=== PATIENT | female | born 1985 | race Caucasian/White ===

== ENCOUNTER 2017-09-15 19:18 | Emergency (ER) | payer OTHER ==
[~2017-09-15] VITALS: Ht 177.8 cm; Wt 131.5 kg
[2017-09-15] MEDS ORDERED: FLEXERIL (19:22)
[2017-09-15 21:22] LABS: ABSOLUTE EOSINOPHILS 0.1 thou/uL (0.0-0.7); ABSOLUTE LYMPHOCYTES 1.9 thou/uL (0.8-5.3); ABSOLUTE MONOCYTES 0.6 thou/uL (0.0-1.2); ABSOLUTE NEUTROPHILS 3.3 thou/uL (1.6-8.1); BASOPHILS 0.8 %; HEMATOCRIT 35.3 % (37.0-47.0); HEMOGLOBIN 11.4 gm/dL (12.0-15.0); LYMPHOCYTES 31.3 %; MCH 21.9 pg (26.0-34.0); MCHC 32.2 g/dL (28.0-37.0); MCV 68.1 fL (80.0-100.0); MONOCYTES 10.6 %; MPV 7.7 fl. (7.2-11.1); NUCLEATED RBCS 0 /100WBC; PLATELET COUNT* 322 thou/uL (150-400); POLYS 55.3 %; RBC 5.19 mil/uL (4.20-5.00); RDW-CV 16.9 % (10.5-14.5); WBC 5.9 thou/uL (4.0-11.0)
[2017-09-15 21:29] LABS: CALCIUM 8.2 mg/dL (8.5-10.1); CREATININE 0.8 mg/dL (0.6-1.3); POTASSIUM 3.4 mmol/L (3.5-5.1)
[2017-09-15 21:33] LABS: ALBUMIN 3.2 g/dL (3.4-5.0); TOTAL BILIRUBIN 0.2 mg/dL (<0.1-1.0); TOTAL PROTEIN 7.6 g/dL (6.4-8.2)
[2017-09-15 22:04] LABS: ANISOCYTOSIS Occasional; MICROCYTES 2+
[2017-09-15 22:05] LABS: HYPOCHROMASIA 1+
[2017-09-15 23:24] LABS: URINE BILIRUBIN NEGATIVE (Negative); URINE BLOOD NEGATIVE (Negative); URINE CLARITY CLEAR; URINE COLOR YELLOW; URINE GLUCOSE-RANDOM NEGATIVE (Negative); URINE KETONES NEGATIVE (Negative); URINE LEUKOCYTES-REFLEX NEGATIVE (Negative); URINE NITRITE-REFLEX NEGATIVE (Negative); URINE PROTEIN TRACE (Negative); URINE SPECIFIC GRAVITY >= 1.030 (1.005-1.030); URINE UROBILINOGEN 0.2 E.U./dl (0.2-1.0)
[2017-09-16 05:18] VITALS: BP 178/98
== END 2017-09-16 05:20 | disposition short-term general hospital (02) ==
LOC: M.ERS 19:18
PROVIDERS: Emergency Medicine
DX: I67.1 Cerebral aneurysm, nonruptured (principal); I10 Essential (primary) hypertension; F10.99 Alcohol use, unspecified with unspecified alcohol-induced disorder; Z98.890 Other specified postprocedural states; Z88.5 Allergy status to narcotic agent; Z88.6 Allergy status to analgesic agent; Z88.8 Allergy status to other drugs, medicaments and biological substances